=== PATIENT | female | born 1985 | race African-American/Black ===

== ENCOUNTER 2018-02-10 08:02 | Outpatient (CLI) | payer BC | END 2018-02-10 08:03 | disposition home or self-care (01) | LOC: BICMAMMO 08:02 | PROVIDERS: ATTEND Obstetrics & Gynecology | DX: N63.0 Unspecified lump in unspecified breast (principal) | CPT/HCPCS: 77066; G0279 ==

== ENCOUNTER 2019-02-16 07:38 | Outpatient (CLI) | payer BC ==
--- NOTE | 2019-02-16 08:51 | ULT ---
US Gallbladder RUQ History: Elevated liver function tests Comparison: None. Findings: Real-time grayscale and color evaluation of the abdomen was performed. Visualized portion of the aorta, IVC, and pancreas are unremarkable. Liver measures 14.9 cm in length with a septated cyst within the right lobe measuring up to 1.8 cm. No solid mass. Portal vein is patent with antegrade flow. Common bile duct is normal measuring 3 mm. Gallbladder wal l thickness is normal. Right kidney measures 10 x 4.4 x 5.5 cm with a 1 cm interpolar cyst. No intrahepatic or extra hepatic biliary dilatation. Impression: No acute gallbladder pathology. No findings to explain patient's hyperbilirubinemia.
== END 2019-02-16 07:39 | disposition home or self-care (01) ==
LOC: ULT 07:38
PROVIDERS: ATTEND Internal Medicine
DX: E80.6 Other disorders of bilirubin metabolism (principal)
CPT/HCPCS: 76705

== ENCOUNTER 2020-05-11 08:21 | Outpatient (CLI) | payer BC ==
--- NOTE | 2020-05-11 09:09 | MMO ---
Bilateral MAMMO Bilat Diag [facility]. CLINICAL HISTORY: Patient is 34 years old and is seen for diagnostic exam and pain in the outer region of the left breast. The patient has no family history of breast cancer. The patient has no personal history of cancer. VIEWS: The views performed were: bilateral craniocaudal with tomosynthesis; bilateral mediolateral oblique with tomosynthesis; and bilateral mediolateral with tomosynthesis. FILMS COMPARED: The present examination has been compared to prior imaging studies performed at [facility] on 02/10/2018 and 05/11/2020. This study has been interpreted with the assistance of computer-aided detection. MAMMOGRAM FINDINGS: The breasts are extremely dense, which may lower the sensitivity of mammography. There are stable benign appearing calcifications seen in both breasts. There are no suspicious masses, suspicious calcifications, or new areas of architectural distortion. IMPRESSION: THERE IS NO MAMMOGRAPHIC EVIDENCE OF MALIGNANCY. A ROUTINE FOLLOW-UP MAMMOGRAM AT AGE 38 IS RECOMMENDED. THE RESULTS OF THIS EXAM WERE SENT TO THE PATIENT. ACR BI-RADS Category 2 - Benign finding MAMMOGRAPHY NOTE: 1. A negative mammogram report should not delay a biopsy if a dominant of clinically suspicious mass is present. 2. Approximately 10% to 15% of breast cancers are not detected by mammography. 3. Adenosis and dense breasts may obscure an underlying neoplasm. Reported by: ROSSY SAINI MD Electonically Signed: [id number]
== END 2020-05-11 08:22 | disposition home or self-care (01) ==
LOC: BICMAMMO 08:21
PROVIDERS: ATTEND Internal Medicine
DX: N60.19 Diffuse cystic mastopathy of unspecified breast (principal); N64.4 Mastodynia
CPT/HCPCS: 77066; G0279

== ENCOUNTER 2022-05-16 09:57 | Outpatient (CLI) | payer BC | END 2022-05-16 09:58 | disposition home or self-care (01) | LOC: BICRAD 09:57 | PROVIDERS: ATTEND Internal Medicine | DX: R06.00 Dyspnea, unspecified (principal) | CPT/HCPCS: 36415; 71046; 80053; 80061; 82248; 82306; 82728; 83540; 83550; 83880; 84443; 85025; 85379 ==